=== PATIENT | male | born 1960 | race Caucasian/White ===

== ENCOUNTER 2024-01-31 13:58 | Inpatient (IN) | payer OTHER ==
[~2024-01-31] VITALS: Ht 180.3 cm; Wt 86.2 kg
[2024-01-31 14:07] VITALS: BP_SYST 176; PULSE 54; RESP 18; TEMP 98.3; O2SAT 97
[2024-01-31 14:57] LABS: BASOPHILS # (AUTO) 0.1 K/uL (0.0-0.2); BASOPHILS % (AUTO) 0.8 % (0.0-2.0); EOSINOPHILS % (AUTO) 0.2 % (0.0-4.0); HEMATOCRIT 39.5 % (36-54); HEMOGLOBIN 13.8 g/dL (14.0-18.0); LYMPHOCYTES % (AUTO) 10.7 % (20.5-51.5); MEAN CORPUSCULAR HEMOGLOBIN 33 pg (27-31); MEAN CORPUSCULAR HGB CONC 35 % (32-36); MEAN CORPUSCULAR VOLUME 93 fL (79.0-98.0); MONOCYTES # (AUTO) 0.3 K/uL (0.0-1.0); MONOCYTES % (AUTO) 3.5 % (1.7-9.3); NEUTROPHILS % (AUTO) 84.8 % (40.0-70.0); PLATELET COUNT (AUTO) 128 K/uL (130-430); RED BLOOD CELL COUNT(AUTO) 4.24 MIL/uL (4.2-6.2); RED CELL DISTRIBUTION WIDTH 14.2 % (9.0-15.0); WHITE BLOOD COUNT (AUTO) 9.5 K/uL (4.8-10.8)
[2024-01-31 14:57] LABS: BILIRUBIN,URINE NEGATIVE (NEGATIVE); BLOOD, URINE NEGATIVE (NEGATIVE); CLARITY/URINE CLEAR (CLEAR); COLOR,URINE YELLOW (YELLOW); GLUCOSE,URINE NEGATIVE (NEGATIVE); KETONES,URINE NEGATIVE (NEGATIVE); LEUKOCYTE ESTERASE ,URINE NEGATIVE (NEGATIVE); NITRITE, URINE NEGATIVE (NEGATIVE); PH,URINE 6.5 (5.0-8.0); PROTEIN URINE NEGATIVE (NEGATIVE); UROBILINOGEN,URINE 0.2 (0.2-1.0)
[2024-01-31 15:16] LABS: BARBITURATE, URINE NEGATIVE (NEG <=200); BENZODIAZEPINE, URINE NEGATIVE (NEG <=150); CANNABINOID, URINE POSITIVE (NEG <=50); COCAINE, URINE NEGATIVE (NEG <=150); METHAMPHETAMINES SCREEN,URINE NEGATIVE (NEG <=500); URINE AMPHETAMINE NEGATIVE (NEG <=500); URINE METHADONE NEGATIVE (NEG <=200)
[2024-01-31 15:16] LABS: INR 1.1 (0.80-1.20)
[2024-01-31 15:17] LABS: OPIATE, URINE NEGATIVE (NEG <=100); PHENCYCLIDINE SCREEN,URINE NEGATIVE (NEG <=25); UR TRICYCLIC ANTIDEPRESSANTS NEGATIVE (NEG <=300); URINE OXYCODONE SCREEN NEGATIVE (NEG <=100)
[2024-01-31 15:34] LABS: ALANINE AMINOTRANSFERASE 18 U/L (12-78); ALBUMIN 4.3 g/dL (3.4-4.8); ANION GAP 10 (5-15); ASPARTATE AMINOTRANSFERASE 24 U/L (10-37); BILIRUBIN,DIRECT 0.3 mg/dL (0.0-0.3); CALCIUM 9.1 mg/dL (8.4-11.0); CARBON DIOXIDE 27 mmol/L (23-29); CHLORIDE 107 mmol/L (98-107); CREATINE KINASE, TOTAL 89 U/L (39-308); CREATININE 0.83 mg/dL (0.55-1.30); GFR AFRICAN AMERICAN 121 mL/min (>90); GLUCOSE 112 mg/dL (74-106); POTASSIUM 4.4 mmol/L (3.5-5.1); SALICYLATE 3 mg/dL (3-30); SODIUM SERUM 144 mmol/L (136-145); TOTAL BILIRUBIN 1.1 mg/dL (0.0-1.0); TOTAL PROTEIN, SERUM 7.3 g/dL (6.4-8.3); UREA NITROGEN, BLOOD 8 mg/dL (8-21)
[2024-01-31 15:37] LABS: ACETAMINOPHEN < 1 ug/mL (1-30); ALCOHOL, BLOOD < 3 mg/dL (<10); GFR NON AFRICAN-AMERICAN 100 mL/min (>90)
[2024-01-31] MEDS ORDERED: ESCI-6 PO (16:59)
[2024-01-31] MEDS ORDERED: ATOR10TA68 PO (16:59)
[2024-01-31] MEDS ORDERED: CARV6.2554 PO (16:59)
[2024-01-31] MEDS ORDERED: APIX5TAB PO (16:59)
[2024-01-31] MEDS ORDERED: ALLO300T2 PO (16:59)
[2024-01-31] MEDS: CARVEDILOL 6.25 MG TABLET (COREG) PO SCH (21:00)
[2024-01-31 22:13] VITALS: BP_SYST 134; PULSE 57; RESP 20; TEMP 98.1
[2024-01-31 22:41] VITALS: BP_SYST 134; PULSE 57; RESP 20; TEMP 98.1; O2SAT 96
[2024-02-01 00:25] VITALS: BP_SYST 151; PULSE 55; RESP 20; TEMP 96.6; O2SAT 98
[2024-02-01 07:55] LABS: BASOPHILS % (AUTO) 0.3 % (0.0-2.0); EOSINOPHILS % (AUTO) 0.6 % (0.0-4.0); HEMATOCRIT 39.4 % (36-54); HEMOGLOBIN 13.1 g/dL (14.0-18.0); LYMPHOCYTES # (AUTO) 1.1 K/uL (1.0-5.5); LYMPHOCYTES % (AUTO) 14.8 % (20.5-51.5); MEAN CORPUSCULAR HEMOGLOBIN 31 pg (27-31); MEAN CORPUSCULAR HGB CONC 33 % (32-36); MEAN CORPUSCULAR VOLUME 94 fL (79.0-98.0); MONOCYTES # (AUTO) 0.7 K/uL (0.0-1.0); MONOCYTES % (AUTO) 9.2 % (1.7-9.3); NEUTROPHILS # (AUTO) 5.7 K/uL (1.8-7.7); NEUTROPHILS % (AUTO) 75.1 % (40.0-70.0); PLATELET COUNT (AUTO) 114 K/uL (130-430); RED CELL DISTRIBUTION WIDTH 14.2 % (9.0-15.0); WHITE BLOOD COUNT (AUTO) 7.6 K/uL (4.8-10.8)
[2024-02-01 08:00] VITALS: BP_SYST 132; PULSE 63; RESP 18; TEMP 98.2; O2SAT 96
[2024-02-01 08:06] LABS: CALCIUM 8.9 mg/dL (8.4-11.0); CREATININE 0.76 mg/dL (0.55-1.30); POTASSIUM 3.8 mmol/L (3.5-5.1)
[2024-02-01] MEDS: CITALOPRAM HYDROBROMIDE 20 MG TABLET PO SCH (08:18)
[2024-02-01] MEDS: ATORVASTATIN 10 MG TABLET PO SCH (08:18)
[2024-02-01] MEDS: ALLOPURINOL 300 MG TABLET (ZYLOPRIM) PO SCH (08:19)
[2024-02-01 12:00] VITALS: BP_SYST 134; PULSE 55; RESP 18; TEMP 98.6; O2SAT 97
[2024-02-01 16:00] VITALS: BP_SYST 128; PULSE 57; RESP 19; TEMP 98.6; O2SAT 95
[2024-02-01 20:00] VITALS: BP_SYST 151; PULSE 60; RESP 16; TEMP 98.3; O2SAT 97; O2SAT 98
[2024-02-01] MEDS: LOSARTAN POTASSIUM 25 MG TABLET PO SCH (20:44)
[2024-02-01] MEDS: TEMAZEPAM 7.5 MG CAPSULE PO PRN (20:45)
[2024-02-01] MEDS: APIXABAN 2.5 MG TABLET PO SCH (20:47)
[2024-02-02 00:30] VITALS: BP_SYST 136; PULSE 62; RESP 16; TEMP 97.3; O2SAT 95
[2024-02-02 04:41] VITALS: O2SAT 98
[2024-02-02 08:00] VITALS: BP_SYST 146; PULSE 56; RESP 17; TEMP 98.7; O2SAT 98
[2024-02-02] MEDS ORDERED: LOSA-412 PO (10:33)
[2024-02-02 13:26] VITALS: BP_SYST 150; PULSE 51; RESP 16; TEMP 97.3; O2SAT 99
[2024-02-02 14:17] VITALS: BP_SYST 150; PULSE 51; RESP 16; TEMP 97.3; O2SAT 99
== END 2024-02-02 14:13 | disposition home or self-care (01) | DRG 309 ==
LOC: SED 13:58 → STU 18:10 → SMU 02-01 18:28
PROVIDERS: ADMIT Specialist; ATTEND Specialist
PROC: 4A00X4Z Measurement of Central Nervous Electrical Activity, External Approach (ICD-10-PCS; principal; 2024-02-01)
DX: R00.1 Bradycardia, unspecified (principal); G93.1 Anoxic brain damage, not elsewhere classified; G45.4 Transient global amnesia; I10 Essential (primary) hypertension; E78.5 Hyperlipidemia, unspecified; I48.0 Paroxysmal atrial fibrillation; F12.90 Cannabis use, unspecified, uncomplicated; Z88.8 Allergy status to other drugs, medicaments and biological substances; Z79.899 Other long term (current) drug therapy
CPT/HCPCS: 36415; 70450-TC; 70551; 71045; 80048; 80076; 80307; 81001; 81003; 82140; 82550; 82948; 83605; 84484; 85025; 85610; 85730; 93005; 93306; 95816; 99285; G0378; G0480; G0481; G0482